=== PATIENT | female | born 1975 | race Caucasian/White ===

== ENCOUNTER 2019-08-20 12:39 | Emergency (ER) | payer OTHER, SELFPAY ==
[2019-08-20 12:59] VITALS: BP 116/74; PULSE 85; RESP 20; TEMP 36.8; O2SAT 100
--- NOTE | 2019-08-20 13:28 | ED.EAR ---
HPI - Ear Problem General Chief complaint: Ear Stated complaint: ear ache Time Seen by Provider: 08/20/19 13:28 Source: patient and RN notes reviewed History of Present Illness HPI Narrative: Patient is a 43-year-old female that presents the urgent care with complaints of left earache and headache. Patient states that started 2 days ago. Patient states that she has been putting a heating pad on her ear. Patient states that she is also been using Tylenol. Is requesting a work note. No other acute complaints. No acute distress noted. Patient aware the plan of care. Related Data Home Medications Medication Instructions Recorded Confirmed budesonide-formoterol [Symbicort] 2 puff INHALATION Q12H 08/20/19 08/20/19 Allergies Allergy/AdvReac Type Severity Reaction Status Date / Time No Known Allergies Allergy Unknown Verified 08/20/19 13:11 Review of Systems Review of Systems: Narrative: CONSTITUTIONAL: Denies fever, chills, or sweats. EYES: Denies visual changes, redness, or discharge. ENT: Reports of left otalgia CARDIOVASCULAR: Denies chest pain, palpitations, or edema. RESPIRATORY: Denies cough or dyspnea. GASTROINTESTINAL: Denies abdominal pain, nausea, vomiting, or diarrhea. GENITOURINARY: Denies dysuria or hematuria. SKIN: Denies rash or itching. MUSCULOSKELETAL: Denies back pain, joint pain, or myalgia. NEUROLOGIC: Reports of headache \ All other systems reviewed are negative, except as documented in HPI. PMFSH Comments At the time of my signature, I reviewed and agree with the nursing past medical, surgical, social, and family history. There is no relevant family history pertinent to the patient complaint. Exam Narrative: Exam Narrative: GENERAL: This is a well-nourished, well-developed patient, in no apparent distress. HEAD: normocephalic, atraumatic. EYES: PERRL. Sclera clear/white. Vision is grossly intact. EARS: External ears normal, auditory canals clear and without drainage, notable fluid behind the left TM without otitis, TMs normal without perforation. Hearing grossly intact. NOSE: External nose normal with no obvious nasal discharge, nares without redness, no rhinorrhea. THROAT: Mucous membranes moist, posterior pharynx clear. NECK: Neck supple, nontender mild submandibular left lymphadenopathy CARDIOVASCULAR: Regular rate and rhythm without murmurs, gallops, or rubs. RESPIRATORY: Clear to auscultation. Breath sounds equal bilaterally. No wheezes, rales, or rhonchi. SKIN: warm, intact with no suspicious lesions or rash, good texture and turgor. NEURO: awake, alert, and oriented to person, place and time. There were no obvious focal neurologic abnormalities. EXTREMITIES: No clubbing, cyanosis, or edema. Course Vital Signs Vital signs: Vital Signs Temperature 98.2 F 08/20/19 12:59 Pulse Rate 85 08/20/19 12:59 Respiratory Rate 08/20/19 12:59 Blood Pressure 116/74 08/20/19 12:59 Pulse Oximetry 100 08/20/19 12:59 Temperature 98.2 F 08/20/19 12:59 Pulse Rate 85 08/20/19 12:59 Respiratory Rate 08/20/19 12:59 Blood Pressure 116/74 08/20/19 12:59 Pulse Oximetry 100 08/20/19 12:59 Reviewed Medical Decision Making MDM Narrative Medical decision making narrative: Advised the patient to use a warm compress or heating pad over the left ear as needed for comfort. Use ibuprofen as needed for pain. Use Claritin and Flonase for postnasal drainage and symptom relief. Use humidifier at night. Follow-up with PCP within 2 to 5 days or for worsening symptoms or failure to improve. Differential Diagnosis Differential Diagnosis: Pneumonia, Allergic Rhinitis, Upper respiratory cough syndrome, Pharyngitis, Sinusitis, Bronchitis, otitis media, viral URI, Asthma/reactive airway disease, COPD, emphysema Vital Signs Vital Signs: Vital Signs Temperature 98.2 F 08/20/19 12:59 Pulse Rate 85 08/20/19 12:59 Respiratory Rate 08/20/19 12:59 Blood Pressure 116/74
== END 2019-08-20 13:35 | disposition home or self-care (01) ==
PROVIDERS: Emergency Provider Nurse Practitioner Family
DX: H92.02 Otalgia, left ear (principal); J45.909 Unspecified asthma, uncomplicated
CPT/HCPCS: 99211; G0463

== ENCOUNTER 2019-08-28 08:13 | Emergency (ER) | payer OTHER, SELFPAY ==
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
[2019-08-28 08:30] VITALS: BP 118/73; PULSE 90; RESP 16; TEMP 37.3; O2SAT 100
== END 2019-08-28 08:50 | disposition home or self-care (01) ==
PROVIDERS: Emergency Provider Nurse Practitioner Family
DX: T14.90XA Injury, unspecified, initial encounter (principal); Y04.0XXA Assault by unarmed brawl or fight, initial encounter; J45.909 Unspecified asthma, uncomplicated
CPT/HCPCS: 99212; G0463

== ENCOUNTER 2020-08-13 09:40 | Emergency (ER) | payer BC, SELFPAY ==
[2020-08-13 10:08] VITALS: BP 144/71; PULSE 78; RESP 20; TEMP 37.2; O2SAT 100
--- NOTE | 2020-08-13 10:33 | ED.URI ---
HPI - URI/Sore Throat General Chief Complaint: Upper Respiratory Infection Stated Complaint: sinus and asthma issues Time Seen by Provider: 08/13/20 10:33 Source: patient Mode of arrival: ambulatory Limitations: no limitations History of Present Illness HPI Narrative: Naila Medina is a 44 yo female with a history of asthma and COPD, who comes to [facility] because she is out of her inhalers and her asthma is acting up. She states she has had some shortness of breath with exertion and even while resting for the past 24 hours, had no viral symptoms no changes in breathing. Patient smokes 1/2 pack of cigarettes a day. Blood pressure is elevated today-states that she sees her doctor regularly-has not treated for hypertension. Patient sounds asthmatic today with wheezing and refuses a nebulizer treatment Related Data Home Medications Medication Instructions Recorded Confirmed albuterol sulfate 1 inh INHALATION QID PRN 08/28/19 08/13/20 budesonide-formoterol [Symbicort] 2 puff INHALATION Q12H 08/28/19 08/13/20 Allergies Allergy/AdvReac Type Severity Reaction Status Date / Time No Known Allergies Allergy Unknown Verified 08/13/20 10:16 Review of Systems Review of Systems: Narrative: CONSTITUTIONAL: Denies fever, chills, sweats. EYES: Denies visual changes, redness, discharge. ENT: Denies rhinorrhea, congestion, sore throat, otalgia. CARDIOVASCULAR: Denies chest pain, palpitations, edema. RESPIRATORY: Has mild dyspnea, has wheezing, dry cough GASTROINTESTINAL: Denies abdominal pain, nausea, vomiting, diarrhea. GENITOURINARY: Denies dysuria, hematuria, abnormal discharge SKIN: Denies rash or itching. NEUROLOGIC: Denies numbness, or focal weakness. PSYCHIATRIC: Denies anxiety or depression. [facility] Past Medical History Medical History Asthma COPD (chronic obstructive pulmonary disease) Surgical History Surgical History H/O tubal ligation History of cholecystectomy Family History Family History Other Hypertension Social History Social History (Updated 08/13/20 @ 10:45 by Linda Harding CNP) Smoking packs per day: 0.5 Smoking cigarettes per day: 10.0 Smoking status: Current every day smoker Alcohol intake: current Comments At time of signature, I agree with nursing past medical, surgical, social and family history. There is no relevant family history pertinent to the presenting complaint. Blood pressure is elevated today and we will follow-up with primary care physician Exam Narrative: Exam Narrative: GENERAL: This is a well-nourished, well-developed patient, in mild distress. HEAD: normocephalic, atraumatic. EYES:Sclera clear/white. Vision is grossly intact. EARS: External ears normal, Hearing grossly intact. NOSE: External nose normal without nasal discharge, nares without redness, no rhinorrhea. THROAT: Mucous membranes moist, posterior pharynx NECK: Neck supple, non-tender CARDIOVASCULAR: Regular rate and rhythm without murmurs, gallops, or rubs. RESPIRATORY: Tight and diminished to auscultation. Breath sounds equal bilaterally. Has wheezes, no rales, or no rhonchi. GASTROINTESTINAL: Abdomen soft, SKIN: warm, intact with no suspicious lesions or rash, good texture and turgor. NEURO: awake, alert, and oriented to person, place and time. There were no obvious focal neurologic abnormalities. Steady gait EXTREMITIES: Normal range of motion. BACK: Nontender without deformity Course Course Emergency Course: Patient comes to express care due to her asthma exacerbation and she has no medication Nurse verified information with Papa and she is on Symbicort and albuterol inhalers patient will also be given prednisone to kick start her medication Patient to follow-up with primary care physician Vital Signs Vital signs:
== END 2020-08-13 10:57 | disposition home or self-care (01) ==
PROVIDERS: Emergency Provider Nurse Practitioner
DX: J45.41 Moderate persistent asthma with (acute) exacerbation (principal); F17.210 Nicotine dependence, cigarettes, uncomplicated; J44.9 Chronic obstructive pulmonary disease, unspecified
CPT/HCPCS: 99213; G0463

== ENCOUNTER 2021-04-29 12:07 | Emergency (ER) | payer BC, SELFPAY ==
[2021-04-29 12:12] VITALS: BP 121/74; PULSE 111; RESP 24; TEMP 36.9; O2SAT 99
--- NOTE | 2021-04-29 12:21 | ED.SOB ---
HPI - SOB/Dyspnea General Chief Complaint: Shortness of Breath/Dyspnea Stated Complaint: Asthma issues Time Seen by Provider: 04/29/21 12:18 Source: patient and RN notes reviewed Mode of arrival: ambulatory Limitations: no limitations History of Present Illness HPI Narrative: 45-year-old female with history of asthma presents with concern for flareup. Reports symptoms started when the weather changed. Reports she is does not have her medicine because she does not currently have a primary care doctor. She denies fever, bodies, chills, sweats, nasal congestion, rhinorrhea. MD elicited complaint: shortness of breath Related Data Home Medications Medication Instructions Recorded Confirmed budesonide-formoterol [Symbicort] 2 puff INHALATION Q12H 08/28/19 04/29/21 Allergies Allergy/AdvReac Type Severity Reaction Status Date / Time No Known Allergies Allergy Unknown Verified 04/29/21 12:21 Review of Systems Review of Systems: CONSTITUTIONAL: Denies malaise, chills, sweats, or fever. EYES: Denies visual changes, redness, or discharge. ENT: Denies rhinorrhea, congestion, sinus pain, otalgia or sore throat. CARDIOVASCULAR: Denies chest pain, palpitations, or edema. RESPIRATORY: Reports cough, dyspnea. GASTROINTESTINAL: Denies nausea, vomiting, diarrhea SKIN: Denies rash or itching. MUSCULOSKELETAL: Denies myalgia. NEUROLOGIC: Denies headache. All systems reviewed & are unremarkable except as noted in HPI and below PMFSH Past Medical History Medical History Asthma COPD (chronic obstructive pulmonary disease) Surgical History Surgical History H/O tubal ligation History of cholecystectomy Family History Family History Other Hypertension Social History Social History (Updated 08/13/20 @ 10:45 by Linda Harding CNP) Smoking packs per day: 0.5 Smoking cigarettes per day: 10.0 Smoking status: Current every day smoker Alcohol intake: current Comments At time of signature, agree with nursing past medical, surgical, social and family history. There is no relevant family history pertinent to the presenting complaint Exam Narrative: GENERAL: Well-appearing, well-nourished, and in no acute distress. HEAD: Normocephalic EYES: PERRLA, conjunctivae clear ENT: Nares clear, , clear discharge. Mucous membranes moist. TM pearly grant with dull light reflex bilaterally; no tragal tenderness. Oropharynx erythematous without lesions. Tonsils enlarged and without exudate, no drooling, no hoarseness, no trismus, uvula midline. NECK: Supple. No lymphadenopathy CHEST: Scattered inspiratory and expiratory wheeze, aeration fair breath sounds equal. No rhonchi, rales, or stridor. No respiratory distress, speaks in full sentences. HEART: Regular rate and rhythm. No murmur heard. SKIN: Warm, dry, no rash. NEURO: Alert and oriented x3. PSYCH: Normal mood and affect Course Course Emergency Course: Patient is aware of diagnosis, understands and agrees to treatment plan. Anticipatory guidance given. Patient agrees to follow-up as directed and is aware of reasons to seek care at the emergency department. Portions of this record may have been created with voice recognition software Reevaluation(s) Reevaluation #1: No wheezing, aeration good Date: 04/29/21 Time: 12:57 Vital Signs Vital signs: Vital Signs Temperature 98.4 F 04/29/21 12:12 Pulse Rate 111 H 04/29/21 12:12 Respiratory Rate 24 H 04/29/21 12:12 Blood Pressure 121/74 04/29/21 12:12 Pulse Oximetry 99 04/29/21 12:12 Temperature 98.4 F 04/29/21 12:12 Pulse Rate 111 H 04/29/21 12:12 Respiratory Rate 24 H 04/29/21 12:12 Blood Pressure 121/74 04/29/21 12:12 Pulse Oximetry 99 04/29/21 12:12 Reviewed. MDM - SOB/Dyspnea MDM Narrative Medical decision making narrative: E
[2021-04-29] MEDS: IPRATROPIUM BR 0.02% INH SOLN 0.5 MG/2.5 ML VIAL INHALATION (12:25)
[2021-04-29] MEDS: ALBUTEROL SULFATE NEB 2.5 MG/3 ML INH INHALATION (12:26)
[2021-04-29 13:00] VITALS: PULSE 85; RESP 18; O2SAT 98
== END 2021-04-29 13:05 | disposition home or self-care (01) ==
PROVIDERS: Emergency Provider Nurse Practitioner
DX: J45.41 Moderate persistent asthma with (acute) exacerbation (principal); F17.210 Nicotine dependence, cigarettes, uncomplicated; J44.9 Chronic obstructive pulmonary disease, unspecified
CPT/HCPCS: 99213; G0463